=== PATIENT | female | born 1955 | race Caucasian/White ===

== ENCOUNTER 2019-02-19 09:00 | Day surgery (SDC) | payer OTHER | END 2019-02-19 12:00 | disposition home or self-care (01) | LOC: AMB-ENDOS 09:00 | DX: K62.89 Other specified diseases of anus and rectum (principal); K57.30 Diverticulosis of large intestine without perforation or abscess without bleeding; K52.89 Other specified noninfective gastroenteritis and colitis; Z12.11 Encounter for screening for malignant neoplasm of colon ==